=== PATIENT | male | born 1950 | race Caucasian/White ===

== ENCOUNTER 2017-06-01 10:04 | Emergency (ER) | payer OTHER ==
[~2017-06-01] VITALS: Ht 172.7 cm; Wt 146.2 kg
[2017-06-01 10:57] LABS: CARBON DIOXIDE (BICARBONATE) 33.2 MEQ/L (20-31); HEMATOCRIT 44.7 % (38.0-50.0); HEMOGLOBIN 15.5 G/DL (12.5-16.6); MCHC 34.7 G/DL (30.0-36.0); MCV 92.2 FL (86-99); PLATELET COUNT 364 K/uL (156-360); RBC DIS.WIDTH-CV 13.5 % (11.8-14.6); RBC DIS.WIDTH-SD 45.5 % (39-53); RED BLOOD COUNT 4.85 M/uL (4.00-5.50); WHITE BLOOD COUNT 10.4 K/uL (4.1-10.2)
[2017-06-01 11:21] LABS: CHLORIDE 91 MEQ/L (99-109); POTASSIUM 4.6 MEQ/L (3.7-5.4); SODIUM 130 MEQ/L (136-147)
[2017-06-01 11:30] LABS: GFR ESTIMATE (CALCULATED) > 59 mL/min/ (58.99-99999); UREA NITROGEN (BUN) 26 mg/dL (9-23)
[2017-06-01 11:33] LABS: GLUCOSE 471 mg/dL (70-99)
[2017-06-01 11:48] LABS: APPEARANCE SL.HAZY ((CLEAR)); BILIRUBIN NEGATIVE; BLOOD NEGATIVE; COLOR YELLOW ((YELLOW)); GLUCOSE (STRIP) >=500; KETONES 5; LEUKOCYTES NEGATIVE; NITRITE NEGATIVE; PROTEIN (STRIP) NEGATIVE; SPECIFIC GRAVITY 1.027 (1.000-1.030); UROBILINOGEN 0.2 MG/DL (0.2-1.0)
[2017-06-01 11:55] LABS: BACTERIA NONE SEEN /HPF; EPITHELIAL CELLS RARE /HPF; HYALINE CASTS 0-5 /LPF; MUCUS NONE SEEN /LPF; RED BLOOD CELLS 0-5 /HPF (0-5); UCUL ADDED? NO; WHITE BLOOD CELLS 0-5 /HPF (0-5)
[2017-06-01 15:25] VITALS: BP 117/73
== END 2017-06-01 15:26 | disposition home or self-care (01) ==
LOC: EME 10:04
PROVIDERS: Emergency Medicine
DX: E11.65 Type 2 diabetes mellitus with hyperglycemia (principal); I48.91 Unspecified atrial fibrillation; Z79.4 Long term (current) use of insulin; T38.3X6A Underdosing of insulin and oral hypoglycemic [antidiabetic] drugs, initial encounter; Z91.128 Patient's intentional underdosing of medication regimen for other reason; I11.0 Hypertensive heart disease with heart failure; I50.9 Heart failure, unspecified; Z87.891 Personal history of nicotine dependence
CPT/HCPCS: 80048; 81003; 82010; 82803; 82948; 85027; 93005; 99281; 99285; J7030